=== PATIENT | male | born 1985 | race Caucasian/White ===

== ENCOUNTER 2021-02-01 07:10 | Day surgery (SDC) | payer BC ==
[~2021-02-01 07:10] MED LIST: Lactated Ringers 1,000 ML IV SCH; Sodium Chloride 0.9% 10 ML SDV IV PRN; Sodium Chloride 0.9% 10 ML Syringe FLUSH PRN; Sodium Chloride 0.9% 2.5 ML Syringe FLUSH PRN; ceFAZolin 2 GM in Premix Bag 1 BAG IV ONE
[2021-02-01] MEDS ORDERED: Bupivacaine 0.5% 10 ML SDV ONE (07:22)
[2021-02-01] MEDS ORDERED: Octyl 2-Cyanoacrylate 1 Tube ONE (07:22)
--- NOTE | 2021-02-01 07:44 | PCM.PREANE ---
Preanesthetic Assessment - Procedure Proposed Procedure: Excis of Left upper arm mass - Anesthesia/Transfusion/Family Hx Anesthesia History: Prior Anesthesia Without Reaction Family History of Anesthesia Reaction: No Transfusion History: No Prior Transfusion(s) - Review of Systems General: No Symptoms Pulmonary: No Symptoms (was 1/2 PPD smoker quit x2 months, asthmas as a child) Cardiovascular: No Symptoms Gastrointestinal: No Symptoms (Has GERD, no longer has, denies any sxs) Neurological: No Symptoms Other: Reports: None - Physical Assessment NPO Status Date: 01/31/21 NPO Status Time: 18:00 Vital Signs: Last Vital Signs Temp 97.7 F 02/01/21 07:25 Pulse 64 02/01/21 07:25 Resp 16 02/01/21 07:25 BP 119/74 02/01/21 07:25 Pulse Ox 99 02/01/21 07:25 Height: 5 ft 8 in Weight: 91.626 kg ASA Class: 2 Mental Status: Alert & Oriented x3 Airway Class: Mallampati = 3 Dentition: Reports: Normal Dentition Thyro-Mental Finger Breadths: 3 Mouth Opening Finger Breadths: 3 ROM/Head Extension: Full Lungs: Clear to Auscultation, Normal Respiratory Effort Cardiovascular: Regular Rate, Regular Rhythm - Allergies Allergies/Adverse Reactions: Allergies Allergy/AdvReac Type Severity Reaction Status Date / Time No Known Allergies Allergy Verified 01/26/21 12:18 - Acknowledgements Anesthesia Type Planned: MAC Pt an Appropriate Candidate for the Planned Anesthesia: Yes Alternatives and Risks of Anesthesia Discussed w Pt/Guardian: Yes Pt/Guardian Understands and Agrees with Anesthesia Plan: Yes PreAnesthesia Questionnaire HEENT History: Reports: None Cardiovascular History: Reports: None Respiratory History: Reports: Other (See Below) Other Respiratory History: asthma as a child Gastrointestinal History: Reports: Other (See Below) Other Gastrointestinal History: GERD in the past Genitourinary History: Reports: None Musculoskeletal History: Reports: Other (See Below) Other Musculoskeletal History: traumatic injury to left foot Neurological History: Reports: None Psychiatric History: Reports: Anxiety, Depression Endocrine/Metabolic History: Reports: None Hematologic History: Reports: None Immunologic History: Reports: None Oncologic (Cancer) History: Reports: None Dermatologic History: Reports: None - Past Surgical History Head Surgeries/Procedures: Reports: None HEENT Surgical History: Reports: None Cardiovascular Surgical History: Reports: None Respiratory Surgical History: Reports: None GI Surgical History: Reports: EGD Male Surgical History: Reports: None Endocrine Surgical History: Reports: None Neurological Surgical History: Reports: None Musculoskeletal Surgical History: Reports: Other (See Below) Other Musculoskeletal Surgeries/Procedures:: reconstruction of left foot due to injury Oncologic Surgical History: Reports: None Dermatological Surgical History: Reports: None - SUBSTANCE USE Tobacco Use Status *Q: Former Tobacco User Tobacco Use Within Last Twelve Months: Cigarettes - HOME MEDS Home Medications: Home Meds ClonazePAM [KlonoPIN] 0.5 mg PO TID PRN 01/26/21 [History] Sertraline HCl 50 mg PO DAILY 01/26/21 [History] - CURRENT (IN HOUSE) MEDS Current Meds: Current Medications Lactated Ringer's (Ringers, Lactated) 1,000 mls @ 125 mls/hr IV ASDIRECTED LILI Last Admin: 02/01/21 07:32 Dose: 125 mls/hr Documented by: Sodium Chloride (Sodium Chloride 0.9% 2.5 Ml Syringe) 2.5 ml FLUSH ASDIRECTED PRN PRN Reason: Keep Vein Open Sodium Chloride (Sodium Chloride 0.9% 10 Ml Sdv) 10 ml IV ASDIRECTED PRN PRN Reason: IV Use Sodium Chloride (Sodium Chloride 0.9% 10 Ml Syringe) 10 ml FLUSH ASDIRECTED PRN PRN Reason: Keep Vein Open Discontinued Medications Bupivacaine HCl (Bupivacaine 0.5% 10 Ml Sdv) Confirm Administered Dose 10 ml .ROUTE .STK-MED ONE Stop: 02/01/21 07:23 Cefazolin Sodium/Dextrose 2 gm (/ Premix) 50 mls @ 100 mls/hr IV ONETIME ONE Stop: 01/31/21 11:06 Octyl Cyanoacrylate (Octyl 2-Cyanoacrylate 1 Tube) Confirm Administered Dose 1 applic .ROUTE .STK-MED ONE Stop: 02/01/21 07:23
[2021-02-01] MEDS ORDERED: fentaNYL 100 MCG/2 ML SDV ONE (08:47)
[2021-02-01] MEDS ORDERED: Lidocaine 2% 5 ML SDV ONE (08:47)
[2021-02-01] MEDS ORDERED: Midazolam 1 MG/ML 2 ML SDV ONE (08:47)
[2021-02-01] MEDS ORDERED: Propofol 200 MG/20 ML SDV ONE (08:47)
[2021-02-01] MEDS ORDERED: Ondansetron 4 MG/2 ML SDV ONE (09:17)
--- NOTE | 2021-02-01 09:44 | PCM.OPNOTE ---
- General Post-Op/Procedure Note Date of Surgery/Procedure: 02/01/21 Operative Procedure(s): Excision left upper arm lipoma Findings: 2.4 x 1.6 x 0.5 cm left upper arm mass Pre Op Diagnosis: Left upper arm lipoma Post-Op Diagnosis: same Anesthesia Technique: General LMA, Local Primary Surgeon: Rohini Rojas Pathology: left upper arm lipoma Output, Urine Amount: 600 EBL in mLs: 2 Condition: Good
--- NOTE | 2021-02-01 09:56 | PCM.POSTAN ---
POST ANESTHESIA ASSESSMENT - MENTAL STATUS Mental Status: Alert, Oriented - VITAL SIGNS Vital Signs: Last Vital Signs Temp 96.8 F L 02/01/21 09:40 Pulse 53 L 02/01/21 09:50 Resp 12 02/01/21 09:50 BP 92/46 L 02/01/21 09:50 Pulse Ox 94 L 02/01/21 09:50 - RESPIRATORY Respiratory Status: Respiratory Rate WNL, Airway Patent, O2 Saturation Stable - CARDIOVASCULAR CV Status: Pulse Rate WNL, Blood Pressure Stable - GASTROINTESTINAL GI Status: No Symptoms - PAIN Pain Score: 0 - POST OP HYDRATION Hydration Status: Adequate & Stable
--- NOTE | 2021-02-01 09:59 | PCM48HPAN ---
Post Anesthesia Note - EVALUATION WITHIN 48HRS OF ANESTHETIC Vital Signs in Normal Range: Yes Patient Participated in Evaluation: Yes Respiratory Function Stable: Yes Airway Patent: Yes Cardiovascular Function Stable: Yes Hydration Status Stable: Yes Pain Control Satisfactory: Yes Nausea and Vomiting Control Satisfactory: Yes Mental Status Recovered: Yes Vital Signs: Last Vital Signs Temp 96.8 F L 02/01/21 09:40 Pulse 53 L 02/01/21 09:50 Resp 12 02/01/21 09:50 BP 92/46 L 02/01/21 09:50 Pulse Ox 94 L 02/01/21 09:50 - COMMENTS/OBSERVATIONS Free Text/Narrative:: Pt doing well post-op. VSS. No apparent enesthetic complications. Dr. Willis Niec
--- NOTE | 2021-02-01 16:32 | OR ---
SURGEON: ROHINI ROJAS MD DATE OF PROCEDURE: 02/01/2021 PREOPERATIVE DIAGNOSIS: Left upper arm lipoma. POSTOPERATIVE DIAGNOSIS: Left upper arm lipoma. PROCEDURE PERFORMED: Excision of left upper arm lipoma. PRIMARY SURGEON: Rohini Rojas MD ANESTHESIA: General LMA, local. FLUIDS: 600 mL crystalloid. ESTIMATED BLOOD LOSS: 2 mL. FINDINGS: Left upper arm lipoma measuring 2.4 x 1.6 x 0.5 cm. No margins associated with case. COMPLICATIONS: None. INDICATIONS: The patient is a 35-year-old male who presented with a lipoma on the dorsum of his left upper arm. It has been growing in size and becoming symptomatic. I explained the need for removal. I explained the procedure, expected perioperative course, and the risks. He verbalized understanding and wishes to proceed. PROCEDURE IN DETAIL: The patient was brought into the OR and placed on the OR table in supine position. A time-out was completed verifying the patient's name, age, date of , allergies, and procedure to be performed. General LMA anesthesia was induced. The left arm was placed in a right angle from the body and externally rotated. The left upper arm was prepped and draped in usual standard fashion. The area of concern had been marked in the preoperative area. I anesthetized over the top of the mass with 0.5% Marcaine plain. An 11 blade was used to make an incision over the top of the mass. Cautery was used to dissect down to the level of subcutaneous fat. Upon entering the subcutaneous fat, I then began blunt dissection around the mass. Using a combination of sharp dissection with the Metzenbaum scissors as well as blunt dissection, I was able to free a lobular firm fat globule from the surrounding normal-appearing subcutaneous fat. This was removed and placed on the back table. It appeared to be a lipoma. It was measured and found to be 2.4 cm x 1.6 cm x 0.5 cm in size. It was sent to pathology labeled as left upper arm lipoma. The wound was then irrigated. Hemostasis was achieved with electrocautery. The wound was then closed with interrupted 3-0 Vicryl sutures in the subcutaneous fat space. The skin was closed with running 4-0 Monocryl suture. Dermabond and sterile dressings were applied. The patient tolerated the procedure well, was extubated and taken to PACU in stable condition. All counts were complete and correct at the end of the case. IRASEMA / MEMO /[id number]
== END 2021-02-01 10:36 | disposition home or self-care (01) ==
LOC: MW.SDS 07:10
PROVIDERS: ATTEND Surgery
DX: D17.22 Benign lipomatous neoplasm of skin and subcutaneous tissue of left arm (principal); F17.210 Nicotine dependence, cigarettes, uncomplicated; Z79.899 Other long term (current) drug therapy; Z98.890 Other specified postprocedural states
CPT/HCPCS: 24075; A9270; J0690; J2250; J2405; J2704; J3010; J3490; J7120; 00400

== ENCOUNTER 2021-11-04 06:29 | Emergency (ER) | payer BC ==
[2021-11-04] MEDS ORDERED: Ketorolac 30 MG/ML SDV IM ONE (06:37)
[2021-11-04] MEDS ORDERED: Ondansetron 4 MG Tab.DIS PO ONE (06:43)
[2021-11-04 07:28] LABS: CORONAVIRUS COVID-19 NAA NEGATIVE (NEGATIVE); INFLUENZA A NAA NEGATIVE (NEGATIVE); INFLUENZA B NAA NEGATIVE (NEGATIVE)
== END 2021-11-04 08:00 | disposition home or self-care (01) ==
LOC: MW.ED 06:29
DX: B34.9 Viral infection, unspecified (principal); J06.9 Acute upper respiratory infection, unspecified; K04.7 Periapical abscess without sinus; F41.9 Anxiety disorder, unspecified; F32.A Depression, unspecified; Z20.822 Contact with and (suspected) exposure to COVID-19
CPT/HCPCS: 0240U; 71045; 93005; 96372; 99285; A9270; J1885; 93010; 99284

== ENCOUNTER 2024-05-31 06:40 | Emergency (ER) | payer SELFPAY ==
[2024-05-31 07:48] LABS: BASOPHILS ABSOLUTE AUTO 0.03 K/uL (0.00-0.20); BASOPHILS PERCENT AUTO 0.4 % (0.0-1.0); EOSINOPHILS ABSOLUTE AUTO 0.02 K/uL (0.00-0.45); EOSINOPHILS PERCENT AUTO 0.3 % (0.0-6.0); HEMATOCRIT 41.4 % (42.0-52.0); HEMOGLOBIN 14.5 g/dL (14.0-18.0); IMMATURE GRAN ABSOLUTE AUTO 0.01 K/uL (0.00-0.05); IMMATURE GRAN PERCENT AUTO 0.1 % (0.0-0.4); LYMPHOCYTES ABSOLUTE AUTO 1.17 K/uL (1.00-4.80); LYMPHOCYTES PERCENT AUTO 14.8 % (24.0-44.0); MEAN CORPUSCULAR HEMOGLOBIN 29.5 pg (28.0-32.0); MEAN CORPUSCULAR VOLUME 84.3 fL (83.0-99.0); MEAN PLATELET VOLUME 10.7 fL (9.4-12.4); MONOCYTES ABSOLUTE AUTO 0.82 K/uL (0.00-0.80); MONOCYTES PERCENT AUTO 10.4 % (0.0-8.0); NEUTROPHILS ABSOLUTE AUTO 5.83 K/uL (1.80-7.70); PLATELET COUNT,PLT 186 K/uL (150-400); RED BLOOD CELL COUNT 4.91 M/uL (4.52-5.90); WHITE BLOOD CELL COUNT,WBC 7.88 K/uL (3.9-11.3)
[2024-05-31] MEDS: Ondansetron 4 MG/2 ML SDV IVPUSH ONE (07:49)
[2024-05-31] MEDS: Ketorolac 30 MG/ML SDV IVPUSH ONE (07:49)
[2024-05-31] MEDS: Sodium Chloride 0.9% 1,000 ML IV ONE (07:49)
[2024-05-31 08:10] LABS: A/G RATIO 0.9 (0.9-1.6); ALBUMIN 3.5 g/dL (3.4-5.0); BILIRUBIN TOTAL 0.5 mg/dL (0.2-1.0); CALCIUM 9.3 mg/dL (8.5-10.1); CARBON DIOXIDE,CO2 26.3 mmol/L (21.0-32.0); CREATININE 1.2 mg/dL (0.8-1.3); EST CRCL DRUG DOSING (CG) 80.75 mL/min; POTASSIUM,K 3.8 mmol/L (3.5-5.1); PROTEIN TOTAL,TP 7.6 g/dL (6.4-8.2)
== END 2024-05-31 09:20 | disposition home or self-care (01) ==
LOC: MW.ED 06:40
DX: J06.9 Acute upper respiratory infection, unspecified (principal); H66.002 Acute suppurative otitis media without spontaneous rupture of ear drum, left ear; Z87.891 Personal history of nicotine dependence; Z75.8 Other problems related to medical facilities and other health care
CPT/HCPCS: 36415; 71045; 80053; 85025; 87428; 87651; 96361; 96374; 96375; 99284; J1885; J2405; J7030; 99283